=== PATIENT | female | born 2000 | race Caucasian/White ===

== ENCOUNTER 2020-06-26 15:06 | Emergency (ER) | payer OTHER ==
[~2020-06-26] VITALS: Ht 149.9 cm; Wt 46.4 kg
[2020-06-26] MEDS ORDERED: SERT-138 (15:29)
[2020-06-26 16:21] LABS: BASO # 0.1 10^3/uL (0.0-0.2); BASO % 0.7 % (0.0-1.0); EOS # 0.7 10^3/uL (0.0-0.5); EOS % 8.6 % (0.0-3.0); HEMATOCRIT 38.7 % (36.0-47.0); HEMOGLOBIN 12.9 g/dl (12.0-15.5); LYMPH # 2.6 10^3/uL (1.5-5.0); LYMPH % 31.5 % (24.0-44.0); MEAN CORPUSCULAR HEMOGLOBIN 29.3 pg (27.0-33.0); MEAN CORPUSCULAR HGB CONC 33.3 g/dl (32.0-36.5); MONO # 0.5 10^3/uL (0.0-0.8); MONO % 6.5 % (0.0-5.0); NEUTROPHILS # 4.4 10^3/uL (1.5-8.5); NEUTROPHILS % 52.5 % (36.0-66.0); PLATELET COUNT, AUTOMATED 370 10^3/uL (150-450); WHITE BLOOD COUNT 8.4 10^3/uL (4.0-10.0)
[2020-06-26 16:55] LABS: ALBUMIN 4.1 GM/DL (3.2-5.2); ALT/SGPT 21 U/L (12-78); BILIRUBIN,DIRECT < 0.1 MG/DL (0.0-0.2); BILIRUBIN,TOTAL 0.2 MG/DL (0.2-1.0); BLOOD UREA NITROGEN 11 MG/DL (7-18); CALCIUM LEVEL 8.7 MG/DL (8.5-10.1); CARBON DIOXIDE LEVEL 29 MEQ/L (21-32); CHLORIDE LEVEL 104 MEQ/L (98-107); CREATININE FOR GFR 0.64 MG/DL (0.55-1.30); GLUCOSE, FASTING 95 MG/DL (70-100); LIPASE 115 U/L (73-393); SODIUM LEVEL 137 MEQ/L (136-145)
[2020-06-26] MEDS: GASTROGRAFIN SOLUTION 30ML PO SCH ×4 (19:12→19:50)
[2020-06-26] MEDS ORDERED: ISOVUE-370 76% 100ML VIAL As Ordered ONE (20:18)
--- NOTE | 2020-06-26 20:57 | REPVR ---
PROCEDURE INFORMATION: Exam: CT Abdomen And Pelvis With Contrast Exam date and time: 06/26/2020 8:31 PM Age: 19 years old Clinical indication: Abdominal pain; Localized; Right lower quadrant (rlq); Additional info: Rlq pain, RO appendicitis TECHNIQUE: Imaging protocol: Computed tomography of the abdomen and pelvis with intravenous contrast. Radiation optimization: All CT scans at this facility use at least one of these dose optimization techniques: automated exposure control; mA and/or kV adjustment per patient size (includes targeted exams where dose is matched to clinical indication); or iterative reconstruction. Contrast material: ISOVUE 370; Contrast volume: 100 ml; Contrast route: INTRAVENOUS (IV); COMPARISON: No relevant prior studies available. FINDINGS: Liver: Normal. No mass. Gallbladder and bile ducts: Normal. No calcified stones. No ductal dilation. Pancreas: Normal. No ductal dilation. Spleen: Normal. No splenomegaly. Adrenals: Normal. No mass. Kidneys and ureters: Normal. No hydronephrosis. Stomach and bowel: There is increased feces throughout the colon consistent with constipation. Gastric diverticulum. Appendix: The appendix appears to be in a retrocecal location and is air-filled without evidence of appendicitis. Intraperitoneal space: There is minimal fluid in the cul-de-sac most likely physiologic. Clinical correlation to exclude other causes of cul-de-sac fluid suggested. Vasculature: Unremarkable. No abdominal aortic aneurysm. Lymph nodes: Unremarkable. No enlarged lymph nodes. Bladder: Unremarkable as visualized. Reproductive: Unremarkable as visualized. Bones/joints: Bilateral L5 spondylolysis, left greater than right. Minimal anterolisthesis of L5 on S1. Soft tissues: There is a small umbilical hernia. There is no evidence of incarceration. IMPRESSION: 1. There is increased feces throughout the colon consistent with constipation. 2. There is minimal fluid in the cul-de-sac most likely physiologic. Clinical correlation to exclude other causes of cul-de-sac fluid suggested. 3. The appendix appears to be in a retrocecal location and is air-filled without evidence of appendicitis. Electronically signed by: Jigar Kemp On 06/26/2020 20:57:18 PM
[2020-06-26 21:20] VITALS: BP 114/63
== END 2020-06-26 21:22 | disposition home or self-care (01) ==
LOC: M ED 15:06
DX: K59.00 Constipation, unspecified (principal); N89.8 Other specified noninflammatory disorders of vagina; Z87.891 Personal history of nicotine dependence
CPT/HCPCS: 36415; 74177; 80048; 80076; 81001; 83690; 84702; 85025; 87086; 99284; Q9963; Q9967

== ENCOUNTER 2021-10-20 15:25 | Emergency (ER) | payer OTHER, SELFPAY ==
[~2021-10-20] VITALS: Ht 147.3 cm; Wt 52.0 kg
[~2021-10-20 15:25] MED LIST: SERT-138
[2021-10-20] MEDS ORDERED: ACETAMINOPHEN TAB 650MG DOSE (2X325MG) PO ONE (17:05)
[2021-10-20] MEDS ORDERED: HYDR-3713 PO (17:29)
[2021-10-20 17:49] VITALS: BP 108/64
== END 2021-10-20 17:51 | disposition home or self-care (01) ==
LOC: M ED 15:25
DX: R10.2 Pelvic and perineal pain (principal); Z88.0 Allergy status to penicillin

== ENCOUNTER 2021-12-16 14:55 | Emergency (ER) | payer OTHER, SELFPAY ==
[~2021-12-16] VITALS: Ht 149.9 cm; Wt 49.8 kg
[2021-12-16 14:55] VITALS: BP 126/84
[~2021-12-16 14:55] MED LIST changes: +HYDR-3713 PO
[2021-12-16 17:29] LABS: BASO % 0.2 % (0.0-1.0); EOS # 0.1 10^3/uL (0.0-0.5); EOS % 0.5 % (0.0-3.0); HEMATOCRIT 41.8 % (36.0-47.0); HEMOGLOBIN 14.3 g/dl (12.0-15.5); LYMPH # 0.4 10^3/uL (1.5-5.0); LYMPH % 2.8 % (24.0-44.0); MEAN CORPUSCULAR HEMOGLOBIN 29.2 pg (27.0-33.0); MEAN CORPUSCULAR HGB CONC 34.2 g/dl (32.0-36.5); MEAN CORPUSCULAR VOLUME 85.5 fl (80.0-96.0); MONO # 0.6 10^3/uL (0.0-0.8); MONO % 4.2 % (2.0-8.0); PLATELET COUNT, AUTOMATED 358 10^3/uL (150-450); RED BLOOD COUNT 4.89 10^6/uL (4.00-5.40); WHITE BLOOD COUNT 15.2 10^3/uL (4.0-10.0)
[2021-12-16] MEDS ORDERED: NS 1,000 ML IV ONE (17:30)
[2021-12-16] MEDS ORDERED: ONDANSETRON 4MG/2ML VIAL IV ONE (17:30)
[2021-12-16 18:19] LABS: ALBUMIN 4.5 GM/DL (3.2-5.2); ALT/SGPT 29 U/L (12-78); BILIRUBIN,DIRECT 0.2 MG/DL (0.0-0.2); BILIRUBIN,TOTAL 0.9 MG/DL (0.2-1.0); BLOOD UREA NITROGEN 17 MG/DL (7-18); CALCIUM LEVEL 9.6 MG/DL (8.5-10.1); CARBON DIOXIDE LEVEL 22 MEQ/L (21-32); CHLORIDE LEVEL 107 MEQ/L (98-107); CREATININE FOR GFR 0.88 MG/DL (0.55-1.30); GLOMERULAR FILTRATION RATE > 60.0 (>60); GLUCOSE, FASTING 91 MG/DL (70-100); LIPASE 77 U/L (73-393); POTASSIUM SERUM 4.3 MEQ/L (3.5-5.1); SODIUM LEVEL 140 MEQ/L (136-145); TOTAL PROTEIN 8.3 GM/DL (6.4-8.2)
[2021-12-16 19:32] LABS: HCG, SERUM QUALITATIVE NEGATIVE (NEGATIVE)
[2021-12-16] MEDS ORDERED: ISOVUE-370 76% 100ML VIAL As Ordered ONE (20:21)
[2021-12-16] MEDS ORDERED: ONDA4TAB6 PO (21:19)
== END 2021-12-16 21:36 | disposition home or self-care (01) ==
LOC: M ED 14:55
DX: K52.9 Noninfective gastroenteritis and colitis, unspecified (principal); Z88.0 Allergy status to penicillin
CPT/HCPCS: 74177; 80048; 80076; 83690; 84703; 85025; 96361; 96374; 99284; J2405; Q9967

== ENCOUNTER 2025-02-03 10:47 | Emergency (ER) | payer MEDICAID, OTHER, SELFPAY ==
[~2025-02-03] VITALS: Ht 149.9 cm; Wt 49.4 kg
[~2025-02-03 10:47] MED LIST changes: +ONDA-282 PO
[2025-02-03] MEDS ORDERED: PRENTAB7 (11:32)
[2025-02-03 13:01] LABS: BASO # 0.1 10^3/uL (0.0-0.2); BASO % 0.5 % (0.0-1.0); EOS # 0.2 10^3/uL (0.0-0.5); EOS % 1.7 % (0.0-3.0); HEMATOCRIT 35.6 % (36.0-47.0); HEMOGLOBIN 12.1 g/dl (12.0-15.5); LYMPH # 2.8 10^3/uL (1.5-5.0); LYMPH % 25.3 % (24.0-44.0); MEAN CORPUSCULAR VOLUME 88.1 fl (80.0-96.0); MONO # 0.7 10^3/uL (0.0-0.8); MONO % 6.5 % (2.0-8.0); NEUTROPHILS # 7.3 10^3/uL (1.5-8.5); NEUTROPHILS % 65.6 % (36.0-66.0); PLATELET COUNT, AUTOMATED 280 10^3/uL (150-450); RED BLOOD COUNT 4.04 10^6/uL (4.00-5.40); WHITE BLOOD COUNT 11.1 10^3/uL (4.0-10.0)
[2025-02-03 13:23] LABS: KETONE, URINE AUTO RFX NEGATIVE (NEGATIVE); LEUKOCYTE ESTERASE UR AUTO RFX NEGATIVE (NEGATIVE); MUCUS, URINE RFX SMALL (NEGATIVE); NITRITE, URINE AUTO RFX NEGATIVE (NEGATIVE); RBC, URINE AUTO RFX 1 /HPF (0-3); SQUAM EPITHELIAL CELL UR AURFX 1 /HPF (0-6); WBC, URINE AUTO RFX 1 /HPF (0-3)
[2025-02-03 13:27] LABS: BLOOD UREA NITROGEN 8 MG/DL (9-23); CARBON DIOXIDE LEVEL 24 MMOL/L (20-31); CHLORIDE LEVEL 105 MMOL/L (98-107); CREATININE FOR GFR 0.45 MG/DL (0.55-1.30); GLOMERULAR FILTRATION RATE > 90.0 (>60); GLUCOSE, FASTING 85 MG/DL (60-100); POTASSIUM SERUM 4.1 MMOL/L (3.5-5.1); SODIUM LEVEL 138 MMOL/L (136-145)
[2025-02-03 16:15] LABS: HCG, SERUM QUANTITATIVE 99880.9 MIU/ML (<4.2)
[2025-02-03 18:00] VITALS: BP 112/67
[2025-02-03 18:45] VITALS: TEMP 98.1; O2SAT 100
[2025-02-03] MEDS ORDERED: NITR100C3 PO (18:48)
[2025-02-03] MEDS: NITROFURANTOIN (MACROBID) 100 MG CAP PO ONE (18:55)
== END 2025-02-03 19:05 | disposition home or self-care (01) ==
LOC: M ED 10:47
DX: R10.2 Pelvic and perineal pain (principal); Z3A.01 Less than 8 weeks gestation of pregnancy; E28.2 Polycystic ovarian syndrome; Z88.0 Allergy status to penicillin; Z79.899 Other long term (current) drug therapy; Z79.810 Long term (current) use of selective estrogen receptor modulators (SERMs)

== ENCOUNTER → 2025-03-02 | Outpatient (CLI) | payer MEDICAID, OTHER ==
[~2025-03-02] MED LIST changes: +NITR100C3 PO; +PRENTAB7
[2025-03-02 17:19] LABS: HEMATOCRIT 36.6 % (36.0-47.0); HEMOGLOBIN 12.5 g/dl (12.0-15.5); MEAN CORPUSCULAR HGB CONC 34.2 g/dl (32.0-36.5); MEAN CORPUSCULAR VOLUME 87.8 fl (80.0-96.0); PLATELET COUNT, AUTOMATED 284 10^3/uL (150-450); RED BLOOD COUNT 4.17 10^6/uL (4.00-5.40); WHITE BLOOD COUNT 9.9 10^3/uL (4.0-10.0)
[2025-03-02 18:12] LABS: HIV 1&2 SCREEN NEGATIVE (NEGATIVE)
[2025-03-02 18:20] LABS: HEPATITIS C VIRUS ABY INDEX 0.05 INDEX (<0.8)
[2025-03-02 19:46] LABS: Trichomonas vaginalis (AMP) NOT DETECTED (NEGATIVE)
[2025-03-02 20:10] LABS: GC DNA AMPLIFICATION NEGATIVE (NEGATIVE)
== END ==
LOC: M PLALAB 14:42
PROVIDERS: ATTEND Advanced Practice Midwife
DX: Z34.01 Encounter for supervision of normal first pregnancy, first trimester (principal)

== ENCOUNTER → 2025-05-10 | Outpatient (CLI) | payer OTHER | LOC: M WHC 13:50 | PROVIDERS: ATTEND Nurse Practitioner Family | DX: Z34.82 Encounter for supervision of other normal pregnancy, second trimester (principal); Z3A.21 21 weeks gestation of pregnancy ==

== ENCOUNTER → 2025-06-19 | Outpatient (CLI) | payer OTHER, SELFPAY ==
[2025-06-19 13:48] LABS: PLATELET COUNT, AUTOMATED 261 10^3/uL (150-450)
[2025-06-19 14:17] LABS: GLUCOSE CHALLENGE TEST 1 HOUR 112 MG/DL (LESS THAN 140)
[2025-06-19 14:46] LABS: HIV 1&2 SCREEN NEGATIVE (NEGATIVE)
[2025-06-19 14:51] LABS: Trichomonas vaginalis (AMP) NOT DETECTED (NEGATIVE)
[2025-06-19 14:54] LABS: HEPATITIS C VIRUS ABY INDEX < 0.02 INDEX (<0.8)
[2025-06-19 15:15] LABS: GC DNA AMPLIFICATION NEGATIVE (NEGATIVE)
== END ==
LOC: M PLALAB 10:19
PROVIDERS: ATTEND Nurse Practitioner Family
DX: Z34.80 Encounter for supervision of other normal pregnancy, unspecified trimester (principal)

== ENCOUNTER → 2025-08-21 | Outpatient (REF) | payer MEDICAID, OTHER | LOC: M SFHCWAGY 14:54 | PROVIDERS: ATTEND Nurse Practitioner Family | DX: Z36.85 Encounter for antenatal screening for Streptococcus B (principal); Z3A.36 36 weeks gestation of pregnancy ==

== ENCOUNTER 2025-09-21 08:10 | Inpatient (IN) | payer MEDICAID, OTHER ==
[~2025-09-21] VITALS: Ht 152.4 cm; Wt 67.0 kg
[2025-09-21] VITALS (13 sets, daily range): BP systolic 134–163; BP diastolic 84–102
[2025-09-21] MEDS ORDERED: HOME MED LIST COMPLETE! XX SCH (08:30)
[2025-09-21 09:37] LABS: PLATELET COUNT, AUTOMATED 197 10^3/uL (150-450)
[2025-09-21 10:34] LABS: HIV 1&2 SCREEN NEGATIVE (NEGATIVE)
[2025-09-21] MEDS ORDERED: TRANEXAMIC ACID INJection 1,000 MG in NS 100 ML IV PRN (10:40)
[2025-09-21] MEDS ORDERED: CARBOPROST TROMETHAMINE 250 MCG/ML AMP IM PRN (10:40)
[2025-09-21] MEDS ORDERED: METHYLERGONOVINE MALEATE 0.2 MG/ML 1 ML VIAL IM PRN (10:40)
[2025-09-21] MEDS ORDERED: LIDOCAINE 1% MDV 20 ML VIAL INFIL PRN (10:40)
[2025-09-21 10:42] LABS: HEPATITIS C VIRUS ABY INDEX < 0.02 INDEX (<0.8)
[2025-09-21] MEDS: miSOPROStol 50 MCG 1/2 TABLET PO SCH (10:51)
[2025-09-21 11:46] LABS: TOTAL PROTEIN,RANDOM URINE 6.3 MG/DL (0.0-14.0)
[2025-09-21] MEDS: BUTORPHANOL 2 MG/ML 1 ML VIAL IV PRN (19:34)
[2025-09-21] MEDS ORDERED: NALOXONE INJ 0.4 MG/1 ML VIAL IV PRN (23:00)
[2025-09-21] MEDS ORDERED: ONDANSETRON 4MG/2ML VIAL IV PRN (23:00)
[2025-09-21] MEDS ORDERED: LR 500 ML IV PRN (23:00)
[2025-09-21] MEDS ORDERED: EPIDURAL/PCA KEYS XX PRN (23:00)
[2025-09-21] MEDS ORDERED: diphenhydrAMINE 50 MG/ML VIAL IV PRN (23:00)
[2025-09-21] MEDS ORDERED: FENTANYL/ROPIVACAINE/NACL BAG 100 ML EPIDURAL SCH (23:00)
[2025-09-21] MEDS: LR 1,000 ML IV SCH (23:22)
[2025-09-22] VITALS (27 sets, daily range): BP systolic 114–164; BP diastolic 62–97; O2SAT 95–98
[2025-09-22] MEDS: OXYTOCIN DRIP 30 UNITS in IV 1 EA IV SCH ×2 (00:55→02:55)
[2025-09-22] MEDS: OXYTOCIN DRIP 30 UNITS in IV 1 EA IV PRN (02:38)
[2025-09-22] MEDS ORDERED: ACETAMINOPHEN 325 MG TAB PO PRN (02:55)
[2025-09-22] MEDS ORDERED: ONDANSETRON 4MG/2ML VIAL IV PRN (02:55)
[2025-09-22] MEDS: LR 1,000 ML IV SCH (02:55)
[2025-09-22] MEDS ORDERED: ACETAMINOPHEN 500 MG TAB PO PRN (02:55)
[2025-09-22] MEDS ORDERED: ANUSOL HC CREAM 30 GM TOP PRN (02:55)
[2025-09-22] MEDS ORDERED: CALCIUM CARBONATE 500 MG CHEW U/D PO PRN (02:55)
[2025-09-22] MEDS ORDERED: RHOGAM 300MCG (1500IU) INJ IM SCH (02:55)
[2025-09-22] MEDS: DIBUCAINE 1% OINTMENT 30 GM TOP PRN (05:38)
[2025-09-22] MEDS: DOCUSATE SODIUM 100 MG CAPSULE PO PRN (10:15)
[2025-09-22] MEDS: PRENATAL VITAMINS CHEWABLE TABLET PO SCH (10:16)
[2025-09-22] MEDS: IBUPROFEN 800 MG TAB PO PRN (10:16)
[2025-09-23 06:00] VITALS: BP 141/85; O2SAT 98
[2025-09-23] MEDS: IBUPROFEN 600 MG TAB PO PRN (08:59)
[2025-09-23 18:03] VITALS: BP 172/104; O2SAT 99
[2025-09-23 18:15] VITALS: BP 152/92
[2025-09-23] MEDS: LABETALOL 200 MG TAB PO SCH (18:27)
[2025-09-23 23:00] VITALS: BP 131/89
[2025-09-24 05:45] VITALS: BP 137/87; O2SAT 97
[2025-09-24 05:48] VITALS: BP 129/89
[2025-09-24] MEDS: MEASLES,MUMPS,RUBELLA VACCINE INJ (MMR-II) SC.IMMUN ONE (09:00)
[2025-09-24] MEDS: FLUZONE VACCINE TRI PF(25-26) 0.5ML SYRINGE IM.IMMUN ONE (11:18)
== END 2025-09-24 13:25 | disposition home or self-care (01) | DRG 560 ==
LOC: M LDI 08:10 → M OBS 09-22 04:52
PROVIDERS: ADMIT Obstetrics & Gynecology; ATTEND Obstetrics & Gynecology
PROC: 3E0P7GC Introduction of Other Therapeutic Substance into Female Reproductive, Via Natural or Artificial Opening (ICD-10-PCS; 2025-09-21)
PROC: 10E0XZZ Delivery of Products of Conception, External Approach (ICD-10-PCS; principal; 2025-09-22)
PROC: 0KQM0ZZ Repair Perineum Muscle, Open Approach (ICD-10-PCS; 2025-09-22)
DX: O48.0 Post-term pregnancy (principal); O70.1 Second degree perineal laceration during delivery; Z3A.40 40 weeks gestation of pregnancy; Z88.0 Allergy status to penicillin; Z37.0 Single live birth